=== PATIENT | female | born 1955 | race Two or more races ===

== ENCOUNTER 2024-12-23 19:47 | Emergency (ER) | payer MEDICARE, MEDICAID ==
[~2024-12-23] VITALS: Ht 154.9 cm; Wt 87.0 kg
[2024-12-23 20:01] VITALS: TEMP 98.2
[2024-12-23 20:40] LABS: GLUCOMETER DEV NAME(LOC) ER.7; GLUCOSE,POINT OF CARE 115 MG/DL (70-110)
[2024-12-23 20:45] VITALS: BP 147/65; PULSE 70; RESP 16; O2SAT 98
[2024-12-23] MEDS: BACITRACIN 0.9 GM PACKET OINTMENT TP ONE (20:56)
[2024-12-23] MEDS: ACETAMINOPHEN 500 MG TABLET PO ONE (20:56)
[2024-12-23] MEDS ORDERED: ACET-3385 PO (21:10)
== END 2024-12-23 21:42 | disposition home or self-care (01) ==
LOC: EMS 19:47
DX: S00.33XA Contusion of nose, initial encounter (principal); Z79.899 Other long term (current) drug therapy; W01.0XXA Fall on same level from slipping, tripping and stumbling without subsequent striking against object, initial encounter; Y93.89 Activity, other specified; Y92.89 Other specified places as the place of occurrence of the external cause; Y99.8 Other external cause status
CPT/HCPCS: 70450; 70486; 72125; 82962; 99284